=== PATIENT | female | born 1980 | race Caucasian/White ===

== ENCOUNTER 2017-11-28 04:47 | Inpatient (IN) | payer OTHER ==
[2017-11-28 05:21] VITALS: BMI 40.0
[2017-11-28 06:15] LABS: Hemoglobin 11.6 g/dL (12.0-16.0); Mean Corpuscular HGB CONC 34.5 g/dL (32.0-36.0); Mean Corpuscular Hemoglobin 30.9 pg (27.0-31.0); Mean Corpuscular Volume 89.4 fL (78.0-98.0); Mean Platelet Volume 8.1 fL (7.4-10.4); Platelet Count 191 thou/uL (130-400); RBC Distribution Width 12.5 % (11.5-14.5); Red Blood Cell (RBC) Count 3.74 mill/uL (4.20-5.40); White Blood Cell (WBC) Count 8.8 thou/uL (4.8-10.8)
[2017-11-28] MEDS ORDERED: Meperidine HCl/PF 25 MG/ML VIAL IM/IV PRN (06:22)
[2017-11-28] MEDS ORDERED: Promethazine HCl 25 MG/ML VIAL IM PRN ×2 (06:22→08:39)
[2017-11-28] MEDS ORDERED: Lactated Ringer's 1,000 ML IV SCH ×2 (06:22→09:30)
[2017-11-28] MEDS ORDERED: Acetaminophen 500 MG TAB PO PRN (06:22)
[2017-11-28] MEDS ORDERED: Ondansetron HCl/PF 4 MG/2 ML Vial IVP PRN ×4 (06:22→09:17)
[2017-11-28] MEDS ORDERED: Butorphanol Tartrate 1 MG/ML VIAL SLOW IVP PRN (06:22)
[2017-11-28] MEDS ORDERED: NS / Oxytocin 40 units/1000ml 1,000 ML IV SCH ×2 (06:30→09:30)
[2017-11-28] MEDS ORDERED: Lidocaine 1% (PF) 30 ML VIAL SC PRN (06:30)
[2017-11-28] MEDS ORDERED: DISCONTINUE ALL PREVIOUS NARCOTICS FS SCH (06:30)
[2017-11-28] MEDS ORDERED: NS w/ Oxytocin 10 units 500 ML IV SCH ×2 (06:30)
[2017-11-28] MEDS ORDERED: Bupivacaine 0.5% 20 ML, fentaNYL Citrate/PF 400 MCG in Sodium Chloride 0.9% 72 ML EPIDURAL SCH (06:30)
[2017-11-28 07:15] LABS: HBSAg Index 0.22 S/CO (0-0.99); Hep B Surf Ag Non-Reactive S/CO (NonReactive); Syphilis Antibody Nonreactive (Nonreactive); Syphilis Antibody Index 0.05 S/CO (<1.00 Non-Reactive)
[2017-11-28] MEDS ORDERED: Lidocaine 2% 10 ML INJ ONE (07:53)
[2017-11-28] MEDS ORDERED: Morphine PF 1 MG/ML SYR ONE (07:54)
[2017-11-28] MEDS ORDERED: Oxytocin 10 UNITS/ML VIAL ONE (07:54)
[2017-11-28] MEDS ORDERED: PHENYLEPHRINE-NS 100 MCG/ML 10 ML SYRINGE ONE ×2 (07:59→11:15)
[2017-11-28] MEDS ORDERED: Clindamycin/D5W 900 mg/50 ml Premix Bag ONE (08:03)
[2017-11-28] MEDS ORDERED: Naloxone HCl 0.4 mg/ml Vial IVP PRN ×2 (08:39)
[2017-11-28] MEDS ORDERED: L&D-Morphine 4 MG/ML VIAL SLOW IVP PRN (08:39)
[2017-11-28] MEDS ORDERED: HYDROmorphone 2 MG/ML VIAL SLOW IVP PRN (08:39)
[2017-11-28] MEDS ORDERED: Naloxone HCl 0.4 mg/ml Vial IV PRN (08:39)
[2017-11-28] MEDS ORDERED: Eucerin (Mineral Oil/Petrolatum,White) 30 gm Jar TOP PRN (08:39)
[2017-11-28] MEDS ORDERED: Promethazine HCl 25 MG SUPP PR PRN (08:39)
[2017-11-28] MEDS ORDERED: diphenhydrAMINE 50 MG/ML VIAL IVP PRN (08:39)
[2017-11-28] MEDS ORDERED: Meperidine HCl/PF 25 MG/ML VIAL SLOW IVP PRN (08:39)
[2017-11-28] MEDS ORDERED: Communication Order-Pharmacy FS SCH (08:45)
[2017-11-28] MEDS ORDERED: Ketorolac Tromethamine 30 MG/ML VIAL IVP SCH (08:45)
[2017-11-28] MEDS ORDERED: Sodium Chloride 0.9% (PF) 10 ML VIAL ONE (09:00)
[2017-11-28] MEDS ORDERED: Bupivacaine 0.25% HCL 30 ML VIAL ONE (09:00)
[2017-11-28] MEDS ORDERED: Lidocaine 2% MPF 10 ML AMP (For Epidural Use) ONE ×2 (09:00→11:15)
[2017-11-28] MEDS ORDERED: Zolpidem Tartrate 5 MG TAB PO PRN (09:17)
[2017-11-28] MEDS ORDERED: Bisacodyl 10 MG SUPP PR PRN (09:17)
[2017-11-28] MEDS ORDERED: Acetaminophen 325 MG TAB PO PRN (09:17)
[2017-11-28] MEDS ORDERED: Adacel (T-DAP) 0.5 ML VIAL IM ONE (09:17)
[2017-11-28] MEDS ORDERED: Simethicone Chewable 80 MG TAB PO PRN (09:17)
[2017-11-28] MEDS ORDERED: diphenhydrAMINE 25 MG CAP PO PRN (09:17)
[2017-11-28] MEDS ORDERED: Lanolin Ointment 7 GM TUBE TOP PRN (09:17)
[2017-11-28] MEDS ORDERED: Misoprostol 200 MCG TAB PR PRN (09:17)
[2017-11-28] MEDS ORDERED: HYDROcodone/Acetaminophen 5/325 mg Tablet PO PRN (09:17)
[2017-11-28] MEDS: Ferrous Sulfate 325 MG TAB PO SCH (12:27)
[2017-11-28] MEDS ORDERED: Clindamycin/D5W 900 MG in Premix Bag 1 BAG IVPB SCH (16:00)
[2017-11-28] MEDS: Ketorolac Tromethamine 30 MG/ML VIAL IVP PRN (19:59)
[2017-11-28] MEDS ORDERED: Meperidine HCl/PF 25 MG/ML VIAL IM PRN (20:42)
[2017-11-29] MEDS: Ketorolac Tromethamine 30 MG/ML VIAL IVP PRN (03:10)
[2017-11-29] MEDS: Docusate Calcium (SURFAK) 240 MG CAP PO SCH ×3 (03:14→20:56)
[2017-11-29 06:02] LABS: Hemoglobin 9.6 g/dL (12.0-16.0); Mean Corpuscular HGB CONC 33.7 g/dL (32.0-36.0); Mean Corpuscular Hemoglobin 30.3 pg (27.0-31.0); Mean Corpuscular Volume 89.9 fL (78.0-98.0); Mean Platelet Volume 7.8 fL (7.4-10.4); Platelet Count 148 thou/uL (130-400); RBC Distribution Width 12.5 % (11.5-14.5); Red Blood Cell (RBC) Count 3.16 mill/uL (4.20-5.40)
[2017-11-29] MEDS: Ferrous Sulfate 325 MG TAB PO SCH ×2 (09:40→17:27)
[2017-11-29] MEDS: Prenatal Vitamin 1 TAB PO SCH (09:40)
[2017-11-29] MEDS: HYDROcodone/Acetaminophen 5/325 mg Tablet PO PRN ×2 (09:41→17:24)
[2017-11-29] MEDS: Ibuprofen 800 MG TAB PO SCH ×2 (14:18→20:56)
[2017-11-30] MEDS: Ibuprofen 800 MG TAB PO SCH (05:52)
[2017-11-30] MEDS: Prenatal Vitamin 1 TAB PO SCH (07:55)
[2017-11-30] MEDS: Docusate Calcium (SURFAK) 240 MG CAP PO SCH (07:55)
[2017-11-30] MEDS: Ferrous Sulfate 325 MG TAB PO SCH (07:55)
--- NOTE | 2017-11-30 08:12 | OP ---
DATE OF PROCEDURE: 11/28/2017 ATTENDING STAFF PHYSICIAN: Quang Ramos M.D. SURGEONS: 1. Quang Ramos M.D. 2. Latoya Webster DO at the [facility]. SENIOR LEAD SOFTWARE ENGINEER SURGEON: Aydee Sousa M.D. PREOPERATIVE DIAGNOSES: 1. Term intrauterine at 39 and 4/7 weeks. 2. Breech presentation. 3. Failed external cephalic version. POSTOPERATIVE DIAGNOSES: 1. Term intrauterine at 39 and 4/7 weeks. 2. Breech presentation. 3. Failed external cephalic version. PROCEDURE PERFORMED: Primary low-transverse section. ANESTHESIA: Epidural catheterization. FINDINGS: 1. A persistent chuck breech presentation with unsuccessful external cephalic version. 2. Vigorous female infant 8 pounds 0 ounces, Apgars 5 and 9. 3. Normal uterus, tubes, and ovaries. COMPLICATIONS: None. SPECIMENS REMOVED: Cord blood. ESTIMATED BLOOD LOSS: Approximately 700 mL (QBL 649 mL). HISTORY AND INDICATIONS: Ms. Rasheeda Whelan is a 36-year-old white female, 4, para P3-0-0-3 at 39-4/7 weeks, A who is followed in my clinic for obstetric care. The patient has been followed for persistent chuck breech presentation. She presented to Labor and Delivery this morning for an a ttempt at external cephalic version (ECV). The patient was counseled and surgical disclosures were s igned and placed in the chart. She received an epidural prior to the procedure. With ultrasound carolann denise, an attempt was made at external cephalic version and this was unsuccessful secondary to the ba by's presentation and placental location. The patient was uncomfortable during the procedure and we tried multiple attempts unsuccessfully and a decision was made to proceed with primary low-transverse section. The patient has been thoroughly counseled and consented and questions answered to her satisfaction. Surgical consent signed and placed in the chart. DESCRIPTION OF PROCEDURE: After consent and counseling, Ms. Rasheeda Whelan was taken to the operati ng room and adequate level of anesthesia was obtained via epidural catheterization. The patient was prepped and draped in the usual sterile fashion for abdominal surgery. A Hartmann had previously been p laced in the bladder, which was noted to be draining clear urine. Attention was then turned to perfo rming the primary low-transverse section. A Pfannenstiel incision was made and carried sharply to the fascia, which was also sharply incised. The midline was identified and the rectus muscles were retracted laterally. The abdominal peritoneal cavity was entered with usual safeguards carried out. A retractor was placed and a bladder flap was created on the vesicouterine peritoneum. A low transverse incision was made on a well-developed low er uterine segment. The was noted to be footling breech presentation at the time of the C-sec tion following failed ECV. The feet were carefully identified and guided into the low transverse inc ision. The breech was delivered in an atraumatic fashion. Using the Mauriceau maneuver, shoulders a nd after coming head were carefully delivered in an atraumatic fashion. Once delivered, the cord was doubly clamped and cut and the was handed to the neonatology team in attendance for delivery. The infant was a vigorous viable female weighing 8 pounds. Apgars 5 and 9 were obtained at 1 and 5 minutes, respectively. The baby responded well to conservative resuscitative measures. The placent a was manually delivered from the uterus. The uterus was exteriorized and good tone was noted. The uterine cavity was cleared of any remaining clot and fluid. The low transverse incision was closed w ith a running locking ligature of #1 chromic. Several jfyqgn-ap-rrofz imbricating ligatures were christina doron to facilitate strength and hemostasis. The vesicouterine peritoneum was reapproximated with a ru nning ligature of 3-0 Monocryl suture. The posterior cul-de-sac and gutters were cleared of clot and fluid. The uterus, fallopian tubes and ovaries were inspected and noted to be normal. The incision was carefully inspected and noted to be hemostatic. The uterus was returned to the abdomen. Lap, s ponge, and needle counts were correct. Good hemostasis was again appreciated. The peritoneum was cl osed with a running ligature of 2-0 Vicryl. The rectus muscles were reapproximated in midline with i nterrupted ligatures of 2-0 Vicryl and 0 chromic suture. The fascia was then closed with 2 ligatures of 0 Vicryl suture, which were tied in the midline. Good fascial integrity was appreciated. The in cision was irrigated with copious amount of warm normal saline. The subcutaneous tissue was closed w ith interrupted ligatures of 2-0 plain suture. The skin was closed with a subcuticular stitch of 4-0 Monocryl and dressed with Dermabond. A pressure dressing and ice packs were subsequently placed. L ap, sponge, and needle counts correct x3. Estimated blood loss during the surgical procedure was ricky roximately 700 mL (QBL 649 mL). The patient was awakened and taken to recovery room in good condition. Immediately following surgery , the patient and family were made aware of the surgical procedure and operative findings. Questions were answered to their satisfaction. Mother and baby are doing well postoperatively.
[2017-11-30 08:33] VITALS: BP 108/66; TEMP 98.5
== END 2017-11-30 11:15 | disposition home or self-care (01) | DRG 788 ==
LOC: L&D 04:47 → 3SW 11:44
PROVIDERS: ADMIT Obstetrics & Gynecology; ATTEND Obstetrics & Gynecology
PROC: 10907ZC Drainage of Amniotic Fluid, Therapeutic from Products of Conception, Via Natural or Artificial Opening (ICD-10-PCS; principal; 2017-11-28)
PROC: 10D00Z1 Extraction of Products of Conception, Low, Open Approach (ICD-10-PCS; 2017-11-28)
DX: O32.8XX0 Maternal care for other malpresentation of fetus, not applicable or unspecified (principal); Z3A.39 39 weeks gestation of pregnancy; Z37.0 Single live birth; O66.5 Attempted application of vacuum extractor and forceps
CPT/HCPCS: 36415; 51702; 59412; 76815; 85027; 86780; 86850; 86900; 86901; 87340; J1885; J2001; J2274; J2405; J2590; J3010; J3490; J7050; S0020